=== PATIENT | male | born 1970 | race Caucasian/White ===

== ENCOUNTER 2018-09-21 09:14 | Emergency (ER) | payer SELFPAY ==
[~2018-09-21] VITALS: Ht 182.9 cm; Wt 99.8 kg
[~2018-09-21 09:14] MED LIST: CIPR500T78 PO; HYDR-1231 PO; OMEP1CAP PO; SUCR1TAB PO
[2018-09-21] MEDS ORDERED: ONDANSETRON 4 MG (ZOFRAN) ORAL DISSOLVE TAB PO STA (09:31)
--- NOTE | 2018-09-21 09:37 | ED General ---
General Chief Complaint: Dizziness/Syncope Stated Complaint: DIZZINESS; VOMITING; NAUSEA Source of Information: Patient Exam Limitations: No Limitations History of Present Illness Date Seen by Provider: Sep 21, 2018 Time Seen by Provider: 09:25 Initial Comments The patient is a very pleasant 48-year-old male who presents for evaluation of the sudden onset of dizziness described as room spinning as well as some nausea and vomiting. He states he has never felt this way before. He compares it to being intoxicated but states he has not drank any alcohol in several years. He denies history of vertigo. He states that he vomited 3 times. He denies headache, vision changes, focal weakness or numbness, neck pain/stiffness, fevers or chills. He is alert and oriented 4, calm, and appears to be in no distress at this time. Allergies and Home Medications Allergies Coded Allergies: aspirin (Verified Adverse Reaction, Unknown, Nausea, 09/21/18) Home Medications Meclizine HCl 25 Mg Tab.chew, 25 MG PO Q6H PRN for VERTIGO Prescribed by: MATEO SCHMITT on 09/21/18 0948 Omeprazole/Sodium Bicarbonate 1 Each Capsule, 1 EACH PO BID, (Reported) Sucralfate 1 Gm Tablet, 1 GM PO ACHS Prescribed by: BLANCA RODARTE on 09/02/15 1151 Patient Home Medication List Home Medication List Reviewed: Yes Review of Systems Review of Systems Constitutional: no symptoms reported, dizziness (described as room- spinning/vertigo) EENTM: no symptoms reported Respiratory: no symptoms reported Gastrointestinal: nausea, vomiting Genitourinary: no symptoms reported Musculoskeletal: no symptoms reported Skin: no symptoms reported Psychiatric/Neurological: No Symptoms Reported Hematologic/Lymphatic: No Symptoms Reported Immunological/Allergic: no symptoms reported All Other Systems Reviewed Negative Unless Noted: Yes Past Nkokvmz-Fsjwyb-Zadimr Hx Past Med/Social Hx: Reviewed Nursing Past Med/Soc Hx Past Medical History Reproductive Disorders: No Sexually Transmitted Disease: No HIV/AIDS: No Adverse Reaction/Blood Tranf: No Family Medical History No Pertinent Family Hx Physical Exam Vital Signs Vital Signs - First Documented 09/21/18 09:24 Temp 97.4 Pulse 92 Resp 16 B/P (MAP) 125/88 (100) Pulse Ox 97 O2 Delivery Room Air Capillary Refill : Height, Weight, BMI Height: 6'0" Weight: 194lbs. oz. 87.014901lp; BMI Method:Stated General Appearance: No Apparent Distress, WD/WN HEENT: PERRL/EOMI, Pharynx Normal, TM Abnormal (R) (mild erythema present, no cerumen impaction either side) Neck: Full Range of Motion, Normal Inspection, Non Tender, Supple Respiratory: Chest Non Tender, Lungs Clear, Normal Breath Sounds, No Respiratory Distress Cardiovascular: Regular Rate, Rhythm, No JVD, Normal Peripheral Pulses Gastrointestinal: Normal Bowel Sounds, Non Tender, Soft Extremity: Normal Capillary Refill, Normal Inspection, Normal Range of Motion, Non Tender Neurologic/Psychiatric: Alert, Oriented x3, No Motor/Sensory Deficits, Normal Mood/Affect, desolderer II-XII Norm as Tested, Other (horizontal nystagmus is present) Skin: Normal Color, Warm/Dry Lymphatic: No Adenopathy Progress/Results/Core Measures Suspected Sepsis SIRS Temperature: Pulse: Respiratory Rate: Blood Pressure / Mean: Results/Orders My Orders Orders - MATEO SCHMITT DO Meclizine Tablet (Antivert Tablet) (09/21/18 09:45) Ondansetron Oral Dissolve Tab (Zofran (09/21/18 09:31) Diazepam Tablet (Valium Tablet) (09/21/18 09:45) Medications Given in ED Current Medications Medications Dose Ordered Sig/Heriberto Route Start Time Stop Time Status Last Admin Dose Admin Meclizine HCl 25 mg ONCE ONCE PO 09/21/18 09:45 09/21/18 09:46 DC 09/21/18 09:38 25 MG Vital Signs/I&O 09/21/18 09:24 Temp 97.4 Pulse 92 Resp 16 B/P (MAP) 125/88 (100) Pulse Ox 97 O2 Delivery Room Air Capillary Refill : Progress Note : Progress Note @1008 - the patient reports that he is feeling much better and has no complaints. No indication for imaging at this time as the patient's vertigo is likely benign positional vertigo. However I did explain to the patient that he must follow-up withthe next 2-3 days and return to the emergency department immediately for any new or worsening symptoms. A prescription for meclizine and has been easily admitted to [facility] pharmacy. The patient has no complaints and is stable for discharge. Departure Impression Primary Impression: Vertigo Disposition: 01 HOME, SELF-CARE Condition: Stable Departure-Patient Inst. Decision time for Depature: 10:00 Referrals: [facility] (PCP) Primary Care Physician LESLY WHALEY APRN (Family) Primary Care Physician Patient Instructions: Vertigo (a Type of Dizziness) (DC) Add. Discharge Instructions: A prescription for the vertigo medication meclizine has been sent to the [facility] pharmacy. Take the prescription as directed as needed dizziness/vertigo. Follow- up with your doctor in the next 2-3 days. Turn to the emergency Department immediately for new or worsening symptoms. Scripts Meclizine HCl (Meclizine HCl) 25 Mg Tab.chew 25 MG PO Q6H PRN for VERTIGO for 5 Days, #20 TAB Prov: MATEO SCHMITT DO 09/21/18 MATEO SCHMITT DO Sep 21, 2018 09:36
[2018-09-21] MEDS ORDERED: MECLIZINE 25 MG (ANTIVERT) TAB PO ONE (09:45)
[2018-09-21] MEDS ORDERED: DIAZEPAM INJ 10 MG/2 ML (VALIUM) SYR IM ONE (09:45)
[2018-09-21] MEDS ORDERED: DIAZEPAM 5 MG (VALIUM) TABLET PO ONE (09:45)
[2018-09-21] MEDS ORDERED: MECL-124 PO (09:48)
[2018-09-21 10:12] VITALS: BP 125/76
== END 2018-09-21 10:11 | disposition home or self-care (01) ==
LOC: EDUNIT# 09:14 → ER FS 09:15
DX: R42 Dizziness and giddiness (principal); Z88.6 Allergy status to analgesic agent
CPT/HCPCS: 99283

== ENCOUNTER → 2020-07-31 | Outpatient (CLI) | payer OTHER ==
[~2020-07-31] MED LIST changes: +MECL-124 PO
--- NOTE | 2020-07-31 11:51 | Diagnostic Imaging Report ---
INDICATION: Knee pain COMPARISON: None. FINDINGS: Two radiographic views of the right knee were obtained. There does appear to be a calcified intra-articular loose body within the posterior joint space. No acute fracture or dislocation is seen. Osseous structures are otherwise intact. Joint spaces are maintained. There is no large joint effusion. No unexpected radiopaque foreign bodies are seen. IMPRESSION: 1. No evidence of acute fracture or dislocation of the right knee. 2. Calcified intra-articular loose body. Dictated by: Dictated on workstation # [id number]
--- NOTE | 2020-07-31 12:00 | Diagnostic Imaging Report ---
INDICATION: Back pain. COMPARISON: None FINDINGS: Frontal and lateral views of the lumbar spine were obtained. Alignment and vertebral heights are maintained. There is no fracture or destructive process. Mild multilevel degenerative changes are noted and consist primarily of facet arthropathy in the lower lumbar spine. Limited views of the abdomen demonstrate nonobstructive bowel gas pattern. IMPRESSION: 1. No acute fracture or dislocation of the lumbar spine. Dictated by: Dictated on workstation # [id number]
== END ==
LOC: RAD 11:06
PROVIDERS: ATTEND Family Medicine
DX: Z02.71 Encounter for disability determination (principal); M54.5 Low back pain; M25.561 Pain in right knee
CPT/HCPCS: 72100; 73560

== ENCOUNTER 2022-03-31 13:16 | Outpatient (CLI) | payer SELFPAY ==
[~2022-03-31] VITALS: Ht 182.9 cm; Wt 113.2 kg
[2022-03-31] MEDS ORDERED: STATIN ×2 (13:59→14:47)
[2022-03-31] MEDS ORDERED: ANXIETY PILL (13:59)
[2022-03-31] MEDS ORDERED: NERVE PILL (13:59)
[2022-03-31] MEDS ORDERED: OMEP40CA6 PO (14:46)
[2022-03-31] MEDS ORDERED: IBUP-1780 PO (14:46)
[2022-03-31] MEDS ORDERED: CELE200C PO (14:46)
[2022-03-31] MEDS ORDERED: MELA5TAB14 PO (14:46)
[2022-03-31] MEDS ORDERED: EZET10TA17 PO (14:46)
[2022-03-31] MEDS ORDERED: ESCI10TA PO (14:46)
[2022-03-31] MEDS ORDERED: TRZ50T PO (14:46)
[2022-03-31] MEDS ORDERED: TRAM100T40 PO (14:46)
[2022-03-31] MEDS ORDERED: ASPI-999 PO (14:46)
== END 2022-03-31 14:03 | disposition home or self-care (01) ==
LOC: PREOP 13:16
PROVIDERS: ATTEND Surgery
DX: Z01.818 Encounter for other preprocedural examination (principal)

== ENCOUNTER 2022-04-15 09:55 | Day surgery (SDC) | payer OTHER ==
[2022-04-15] VITALS (9 sets, daily range): BP systolic 109–128; BP diastolic 60–86
[~2022-04-15] VITALS: Ht 182 cm; Wt 113.2 kg
[~2022-04-15 09:55] MED LIST changes: +ANXIETY PILL; +ASPI-999 PO; +CELE200C PO; +ESCI10TA PO; +EZET10TA17 PO; +IBUP-1780 PO; +MELA5TAB14 PO; +NERVE PILL; +OMEP40CA6 PO; +STATIN; +TRAM100T40 PO; +TRZ50T PO
[2022-04-15] MEDS ORDERED: LIDOCAINE/EPI 1%-1:100,000 (XYLOCAINE) 30ML ONE (10:10)
--- NOTE | 2022-04-15 10:12 | Progress Note-Pre Operative ---
Pre-Operative Progress Note Date H&P Reviewed: Apr 15, 2022 Time H&P Reviewed: 10:10 History & Physical: H&P Reviewed, Patient Examed, No changes noted Pre-Operative Diagnosis: Incarcerated incisional hernia DANIELLE RAYMUNDO APRN Apr 15, 2022 10:12
--- NOTE | 2022-04-15 10:14 | Discharge Inst-Surgical ---
D/C Lap Instructions-KIDO Reconcile Patient Problems Problems Reviewed?: Yes New, Converted, or Re-Newed RX: RX on Chart Follow Up Appt in 2 weeks Activity as tolerated No driving for 24 hours No driving while on pain medications Incentive Spirometry use every 2 hours while awake Regular Diet Symptoms to Report: Fever over 101 degree F, Nausea/Vomiting Infection Signs and Symptoms to report: Increased redness, Foul odor of wound, Increased drainage Bathing instructions: May shower Operative Area Clean/Dry; Keep incision clean/dry If any problems/questions: Contact your physician or go to Emergency Room DANIELLE RAYMUNDO APRN Apr 15, 2022 10:14
[2022-04-15] MEDS ORDERED: morphine INJ 10 MG/ML 1ML (SYR OR VIAL) IVP PRN (10:15)
[2022-04-15] MEDS ORDERED: ONDANSETRON 4 MG/2 ML (SDV) Z0FRAN IVP PRN ×2 (10:15→12:00)
[2022-04-15] MEDS ORDERED: HYDROcodone/APAP 5 MG/325 MG (LORTAB) TAB PO ONE (10:15)
[2022-04-15] MEDS ORDERED: ceFAZolin INJECTION 2,000 MG in NS (IVPB) 50 ML IV ONE (10:15)
[2022-04-15] MEDS ORDERED: ACETAMINOPHEN 325 MG TABLET PO PRN (10:15)
[2022-04-15] MEDS ORDERED: LACTATED RINGERS 1,000 ML IV PRN (10:15)
[2022-04-15] MEDS ORDERED: ceFAZolin INJECTION 2,000 MG ONE (10:23)
[2022-04-15] MEDS ORDERED: NS (IVPB) 50 ML ONE (10:23)
[2022-04-15] MEDS ORDERED: proPOfol 200 MG/20 ML (DIPRIVAN) VIAL IV ONE (10:28)
[2022-04-15] MEDS ORDERED: LIDOCAINE PF 2% 5 ML (XYLOCAINE) VIAL ONE (10:28)
[2022-04-15] MEDS ORDERED: ONDANSETRON 4 MG/2 ML (SDV) Z0FRAN ONE (10:28)
[2022-04-15] MEDS ORDERED: MIDAZOLAM 2 MG/2 ML (VERSED) VIAL ONE (10:29)
[2022-04-15] MEDS ORDERED: fentaNYL INJ 100 MCG/2 ML AMP ONE (10:29)
[2022-04-15] MEDS ORDERED: ROCURONIUM 50 MG/5 ML (ZEMURON) VIAL IV ONE (11:00)
[2022-04-15] MEDS ORDERED: NEOSTIGMINE 3 MG/3 ML VIAL ONE (11:26)
[2022-04-15] MEDS ORDERED: GLYCOPYRROLATE 0.2 MG/ML (ROBINUL) 2 ML VIAL ONE (11:26)
[2022-04-15] MEDS ORDERED: SEVOFLURANE (ULTANE) 15 ML INHAL SOLN ONE (11:33)
--- NOTE | 2022-04-15 11:40 | Progress Note-Post Operative ---
Post-Operative Progess Note Surgeon (s)/Hot Top Liner Helper (s) Surgeon JEFFREY TRUONG MD Hot Top Liner Helper: dionne hernandez [employer] Pre-Operative Diagnosis Incarcerated incisional hernia Post-Operative Diagnosis same, fascial defect 3cm Procedure & Operative Findings Date of Procedure 04/15/22 Procedure Performed/Findings incarcerated ventral abd inc hernia repair with mesh. Anesthesia Type get Estimated Blood Loss Estimated blood loss (mL): mnimal Specimens/Packing Specimens Removed hernia sac and contents JEFFREY TRUONG MD Apr 15, 2022 11:40
[2022-04-15] MEDS ORDERED: HYDR-3817 PO (11:53)
[2022-04-15] MEDS ORDERED: HYDROmorphone 2 MG/ML VIAL (DILAUDID) IV ONE (12:00)
[2022-04-15] MEDS ORDERED: morphine INJ 10 MG/ML 1ML (SYR OR VIAL) IVP ONE (12:00)
--- NOTE | 2022-04-15 12:36 | Anesthesia-General Post-Op ---
General Patient Condition Mental Status/LOC: Same as Preop Cardiovascular: Satisfactory Nausea/Vomiting: Absent Respiratory: Satisfactory Pain: Controlled Complications: Absent Post Op Complications Complications None Follow Up Care/Instructions Patient Instructions None needed. Anesthesia/Patient Condition Patient Condition [place] [facility] [place], no complaints, stable vital signs, no apparent adverse anesthesia problems. No complications reported per nursing. JUNE ADHIKARI DO Apr 15, 2022 12:36
[2022-04-15] MEDS ORDERED: HYDROcodone/APAP 7.5 MG/325 MG (LORTAB, LORCET PLUS) TABLET PO ONE (12:59)
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
== END 2022-04-15 13:10 | disposition home or self-care (01) ==
LOC: SDC 09:55
PROVIDERS: ATTEND Surgery
DX: K43.0 Incisional hernia with obstruction, without gangrene (principal); F17.210 Nicotine dependence, cigarettes, uncomplicated; K21.9 Gastro-esophageal reflux disease without esophagitis; E66.9 Obesity, unspecified; Z68.34 Body mass index [BMI] 34.0-34.9, adult
CPT/HCPCS: 49594; 87081; C1781

== ENCOUNTER → 2022-08-26 | Outpatient (CLI) | payer OTHER ==
[~2022-08-26] MED LIST changes: +HYDR-3817 PO
--- NOTE | 2022-08-26 09:49 | Diagnostic Imaging Report ---
Indication: Pre-MRI screening. Time of Exam: 9:48 AM No radiopaque orbital foreign body is detected. Visualized paranasal sinuses are clear. IMPRESSION: No radiopaque orbital foreign body is detected. Dictated by: Dictated on workstation # [id number]
== END ==
LOC: RAD 09:14
PROVIDERS: ATTEND Nurse Practitioner Family
DX: M54.6 Pain in thoracic spine (principal)